=== PATIENT | male | born 1990 | race Caucasian/White ===

== ENCOUNTER 2022-08-16 14:04 | Emergency (ER) | payer MEDICAID ==
[~2022-08-16] VITALS: Ht 172.7 cm; Wt 80.0 kg
[2022-08-16 14:25] VITALS: BP 116/83
[2022-08-16] MEDS ORDERED: NALOXONE HCL 0.4 MG/ML 1ML VIAL IM STA (14:49)
[2022-08-16] MEDS ORDERED: SODIUM CHLORIDE 0.9% 1,000 ML IV ONE (15:00)
== END 2022-08-16 15:35 | disposition left against medical advice (07) ==
LOC: ER 14:15
DX: T40.2X1A Poisoning by other opioids, accidental (unintentional), initial encounter (principal); S09.8XXA Other specified injuries of head, initial encounter; F11.988 Opioid use, unspecified with other opioid-induced disorder; W01.198A Fall on same level from slipping, tripping and stumbling with subsequent striking against other object, initial encounter; Y93.89 Activity, other specified; Y92.018 Other place in single-family (private) house as the place of occurrence of the external cause
CPT/HCPCS: 99281; J2310

== ENCOUNTER 2022-09-11 17:28 | Emergency (ER) | payer MEDICAID, OTHER ==
[~2022-09-11] VITALS: Ht 170.2 cm; Wt 77.0 kg
[2022-09-11 17:34] VITALS: BP 124/79
== END 2022-09-11 17:59 | disposition left against medical advice (07) ==
LOC: ER 17:28
DX: Z53.21 Procedure and treatment not carried out due to patient leaving prior to being seen by health care provider (principal)
CPT/HCPCS: Z7610 ×3